=== PATIENT | male | born 1945 | race Caucasian/White ===

== ENCOUNTER 2021-01-09 13:24 | Emergency (ER) | payer OTHER ==
[~2021-01-09] VITALS: Ht 172.7 cm; Wt 90.3 kg
[2021-01-09] MEDS ORDERED: LIPITOR80 MG PO (14:16)
[2021-01-09] MEDS ORDERED: WELLBUTRIN SR150 MG PO (14:16)
[2021-01-09] MEDS ORDERED: ASA81BEC PO (14:16)
[2021-01-09] MEDS ORDERED: ROCALTROL0.25 MCG PO (14:17)
[2021-01-09] MEDS ORDERED: CARVEDILOL25 MG PO (14:17)
[2021-01-09] MEDS ORDERED: XARELTO1 EACH PO (14:17)
[2021-01-09 14:41] VITALS: BP 144/104
--- NOTE | 2021-01-09 16:45 | EKG ---
[address] [address] [address] [place] [address] ELECTROCARDIOGRAM REPORT Name: DAISY MAY Room #: DEP JIMMIE Estrada#: [id number] Admission: 01/09/21 Attend Phys: Discharge: 01/09/21 Date of : 41 Report #: [id number] [facility] ED Test Date: 2021-01-09 Test Time: 13:28:40 Pat Name: DAISY MAY Department: Room: Gender: M Network Account Manager: : 1945 Requested By: Alexi Shearer Order Number: [id number] MD: Dagoberto Wilson Measurements Intervals [place] Rate: 113 P: [place]: QRS: 10 QRSD: 90 T: 149 QT: 314 QTc: 431 Interpretive Statements Atrial fibrillation Ventricular bigeminy Low voltage Anteroseptal infarct, old Borderline repolarization abnormality No previous ECG available for comparison Electronically Signed On 01-09-2021 16:45:25 CDT by Dagoberto Wilson [email or web address] <ELECTRONICALLY SIGNED> By: Dagoberto Wilson MD, [facility] 01/09/21 1645 1328 1328 Dagoberto Wilson MD, FACC /EPI
== END 2021-01-09 14:51 | disposition short-term general hospital (02) ==
LOC: ER 13:24
DX: S06.360A Traumatic hemorrhage of cerebrum, unspecified, without loss of consciousness, initial encounter (principal); S41.112A Laceration without foreign body of left upper arm, initial encounter; N18.4 Chronic kidney disease, stage 4 (severe); W18.30XA Fall on same level, unspecified, initial encounter; Y93.89 Activity, other specified; Y92.89 Other specified places as the place of occurrence of the external cause; Y99.9 Unspecified external cause status